=== PATIENT | female | born 1980 | race Hispanic/Latino ===

== ENCOUNTER 2018-07-23 13:56 | Emergency (ER) | payer OTHER ==
[2018-07-23] MEDS ORDERED: ACETAMINOPHEN-CODEINE 300/30MG TAB ONE (14:14)
[2018-07-23] MEDS ORDERED: CYCLOBENZAPRINE HCL 10 MG TABLET ONE (14:14)
[2018-07-23 14:20] LABS: APPEARANCE,URINE CLOUDY (CLEAR); BILIRUBIN,URINE NEGATIVE (NEGATIVE); COLOR,URINE YELLOW (YELLOW); GLUCOSE, URINE (UA) NEGATIVE (NEGATIVE); KETONES,URINE NEGATIVE (NEGATIVE); LEUKOCYTE ESTERASE ,URINE TRACE (NEGATIVE); NITRATE,URINE POSITIVE (NEGATIVE); OCCULT BLOOD,URINE NEGATIVE (NEGATIVE); PH,URINE 6.5 (5.0-8.0); PROTEIN,URINE NEGATIVE (NEGATIVE); UROBILINOGEN,URINE 0.2 mg/dL (0.2-1.0)
[2018-07-23 14:28] LABS: HCG,QUAL RESULT NEGATIVE (NEGATIVE)
[2018-07-23 14:32] LABS: RBC,URINE 0-1 /HPF (0-1)
[2018-07-23 14:33] LABS: BACTERIA,URINE Moderate /HPF (None Seen); SQUAMOUS EPITHELIAL CELL,UR Moderate /HPF (0-2)
== END 2018-07-23 15:06 | disposition home or self-care (01) ==
LOC: EDH 13:56
DX: S13.4XXA Sprain of ligaments of cervical spine, initial encounter (principal); S40.012A Contusion of left shoulder, initial encounter; M54.5 Low back pain; Z87.891 Personal history of nicotine dependence; V49.49XA Driver injured in collision with other motor vehicles in traffic accident, initial encounter; Y93.89 Activity, other specified; Y92.89 Other specified places as the place of occurrence of the external cause; Y99.8 Other external cause status
CPT/HCPCS: 72040; 72100; 73030; 81001; 81025